=== PATIENT | male | born 1995 | race Two or more races ===

== ENCOUNTER 2017-04-10 14:17 | Emergency (ER) | payer BC ==
[~2017-04-10] VITALS: Ht 185.4 cm; Wt 68.0 kg
[2017-04-10 14:22] VITALS: BP 113/74
== END 2017-04-10 14:47 | disposition home or self-care (01) ==
LOC: ER 14:19
DX: L25.9 Unspecified contact dermatitis, unspecified cause (principal); F32.9 Major depressive disorder, single episode, unspecified
CPT/HCPCS: 99283; A4606; Z7610

== ENCOUNTER 2017-05-24 18:36 | Emergency (ER) | payer BC ==
[~2017-05-24] VITALS: Ht 185.4 cm; Wt 68.0 kg
[2017-05-24 18:40] VITALS: BP 128/79
--- NOTE | 2017-05-24 19:40 | NUR ---
PT C/O BODY RASH/REDNESS ON HANDS AND ARMPITS BILATERALLY. NO SOB OR PAIN NOTED. A/O X4 ABLE TO MAKE NEEDS MET. WILL BE SEEN BY
--- NOTE | 2017-05-24 19:42 | NUR ---
SEEN BY . TO BE D/C
== END 2017-05-24 20:00 | disposition home or self-care (01) ==
LOC: ER 18:38
DX: L30.9 Dermatitis, unspecified (principal); B35.1 Tinea unguium; L30.4 Erythema intertrigo; F32.9 Major depressive disorder, single episode, unspecified; F12.10 Cannabis abuse, uncomplicated
CPT/HCPCS: 99282; A4606; Z7610

== ENCOUNTER 2017-12-23 00:21 | Emergency (ER) | payer MEDICAID ==
[~2017-12-23] VITALS: Ht 185.4 cm; Wt 68.0 kg
[2017-12-23 00:23] VITALS: BP 103/65
[2017-12-23] MEDS ORDERED: TETRACAINE HCL/PF 0.5% UD 2 ML BOTTLE ONE (00:27)
[2017-12-23] MEDS ORDERED: FLUORESCEIN SODIUM OPHTH 1 EA STRIP ONE (00:27)
[2017-12-23] MEDS ORDERED: AZITHROMYCIN 250 MG TABLET ONE (00:51)
[2017-12-23] MEDS ORDERED: CEFTRIAXONE 500 MG VIAL ONE (00:51)
[2017-12-23] MEDS ORDERED: LIDOCAINE 0.5% HCL 50 ML VIAL ONE (00:51)
[2017-12-23] MEDS ORDERED: CEFTRIAXONE 500 MG VIAL IM ONE (01:00)
[2017-12-23] MEDS ORDERED: AZITHROMYCIN 250 MG TABLET PO ONE (01:00)
== END 2017-12-23 01:20 | disposition home or self-care (01) ==
LOC: ER 00:21
DX: B30.8 Other viral conjunctivitis (principal); N34.2 Other urethritis; A63.8 Other specified predominantly sexually transmitted diseases; F32.9 Major depressive disorder, single episode, unspecified
CPT/HCPCS: A4606; J0696; J3490; Z7610

== ENCOUNTER 2018-02-03 14:48 | Emergency (ER) | payer MEDICAID ==
[~2018-02-03] VITALS: Ht 185.4 cm; Wt 69.9 kg
[2018-02-03 14:48] VITALS: BP 128/70
[2018-02-03] MEDS ORDERED: IBUPROFEN 600 MG TABLET PO ONE (15:17)
[2018-02-03] MEDS: IBUPROFEN 600 MG TABLET PO ONE (15:27)
== END 2018-02-03 16:45 | disposition home or self-care (01) ==
LOC: ER 14:53
DX: K12.2 Cellulitis and abscess of mouth (principal); A74.9 Chlamydial infection, unspecified; F31.9 Bipolar disorder, unspecified; F17.210 Nicotine dependence, cigarettes, uncomplicated
CPT/HCPCS: 86403-TC; 87070-TC; A4606; Z7610

== ENCOUNTER 2020-07-11 18:52 | Emergency (ER) | payer MEDICAID, OTHER ==
[~2020-07-11] VITALS: Ht 185.4 cm; Wt 79.4 kg
[2020-07-11 19:21] VITALS: BP 148/77
[2020-07-11] MEDS ORDERED: TDAP [DIPH/PERTUSSIS/TET] 0.5 ML VIAL IM ONE ×2 (19:46→20:00)
[2020-07-11] MEDS ORDERED: CEPH500C2 PO (19:51)
[2020-07-11] MEDS ORDERED: SULF1TAB48 PO (19:51)
--- NOTE | 2020-07-11 20:02 | NUR ---
Patient discharged to home in stable condition. Written and verbal after care instructions given. Patient verbalizes understanding of instruction.
== END 2020-07-11 20:02 | disposition home or self-care (01) ==
LOC: ER 18:53
DX: S60.511A Abrasion of right hand, initial encounter (principal); L08.9 Local infection of the skin and subcutaneous tissue, unspecified; F31.9 Bipolar disorder, unspecified; F12.90 Cannabis use, unspecified, uncomplicated; Z98.890 Other specified postprocedural states; Z79.899 Other long term (current) drug therapy; W22.8XXA Striking against or struck by other objects, initial encounter; Y93.89 Activity, other specified; Y92.89 Other specified places as the place of occurrence of the external cause; Y99.8 Other external cause status
CPT/HCPCS: 90715

== ENCOUNTER 2020-09-01 14:11 | Emergency (ER) | payer MEDICAID, OTHER ==
[~2020-09-01] VITALS: Ht 185.4 cm; Wt 83.5 kg
[~2020-09-01 14:11] MED LIST: CEPH500C2 PO; SULF1TAB48 PO
[2020-09-01 14:21] VITALS: BP 122/80
[2020-09-01] MEDS ORDERED: CIPR5DRO EACHEYE (14:37)
--- NOTE | 2020-09-01 14:37 | NUR ---
THE PATIENT BIBS FOR C/O L EYE ITCHING AND IRRITATION SINCE THIS MORNING. THE PATIENT IS ALERT AND ORIENTED X4. DENIES PAIN. PATIENT DENIES CHANGE IN HIS VISION. IN ROOM AIR AND DENIE SOB. RESPIRATION REGULAR AND UNLABORED. PATIENT IS IN ER BED #1. WILL CONTINUE TO MONITOR.
--- NOTE | 2020-09-01 14:43 | NUR ---
Patient discharged to home in stable condition. Written and verbal after care instructions given. Patient verbalizes understanding of instruction. The patient left ER in stable condition.
== END 2020-09-01 14:46 | disposition home or self-care (01) ==
LOC: ER 14:14
DX: H10.89 Other conjunctivitis (principal); F31.9 Bipolar disorder, unspecified; F17.200 Nicotine dependence, unspecified, uncomplicated; Z79.899 Other long term (current) drug therapy

== ENCOUNTER 2021-01-30 19:15 | Emergency (ER) | payer OTHER ==
[~2021-01-30] VITALS: Ht 185.4 cm; Wt 81.6 kg
[~2021-01-30 19:15] MED LIST changes: +CIPR5DRO EACHEYE
--- NOTE | 2021-01-30 21:39 | NUR ---
Patient discharged to home in stable condition. Written and verbal after care instructions given. Patient verbalizes understanding of instruction.
[2021-01-30 21:43] VITALS: BP 132/70
== END 2021-01-30 21:44 | disposition home or self-care (01) ==
LOC: ER 19:19
DX: S93.492A Sprain of other ligament of left ankle, initial encounter (principal); F12.90 Cannabis use, unspecified, uncomplicated; F31.9 Bipolar disorder, unspecified; Z98.890 Other specified postprocedural states; X50.1XXA Overexertion from prolonged static or awkward postures, initial encounter; Y93.89 Activity, other specified; Y92.89 Other specified places as the place of occurrence of the external cause; Y99.8 Other external cause status
CPT/HCPCS: 73610-TC

== ENCOUNTER 2021-02-24 10:09 | Emergency (ER) | payer OTHER ==
[~2021-02-24] VITALS: Ht 185.4 cm; Wt 80.7 kg
--- NOTE | 2021-02-24 10:17 | NUR ---
THE PATIENT BIBS FOR PENILE DISCHARGE POSS STD PER PT. DENIES PAIN. DENIES FEVER OR CHILLS. WILL CONTINUE TO MONITOR THE PATIENT.
--- NOTE | 2021-02-24 10:22 | NUR ---
DR KEMP AT THE BEDSIDE
[2021-02-24] MEDS ORDERED: CEFTRIAXONE 500 MG VIAL IM ONE (10:30)
[2021-02-24] MEDS ORDERED: CEFTRIAXONE 500 MG VIAL ONE (10:36)
[2021-02-24] MEDS ORDERED: LIDOCAINE 2% 20 ML MDV ONE (10:36)
[2021-02-24] MEDS ORDERED: DOXY100C2 PO (10:45)
--- NOTE | 2021-02-24 10:48 | NUR ---
Patient discharged to home in stable condition. Written and verbal after care instructions given. Patient verbalizes understanding of instruction.
[2021-02-24 10:51] VITALS: BP 124/68
== END 2021-02-24 10:51 | disposition home or self-care (01) ==
LOC: ER 10:17
DX: K62.89 Other specified diseases of anus and rectum (principal); F31.9 Bipolar disorder, unspecified; F17.200 Nicotine dependence, unspecified, uncomplicated; Z79.899 Other long term (current) drug therapy
CPT/HCPCS: 87491; 87591; 96372; 99283; J0696; J3490

== ENCOUNTER 2021-12-08 18:45 | Emergency (ER) | payer OTHER ==
[~2021-12-08] VITALS: Ht 188 cm; Wt 79.4 kg
[~2021-12-08 18:45] MED LIST changes: +DOXY100C2 PO
[2021-12-08 20:03] VITALS: BP 116/92
[2021-12-08] MEDS ORDERED: TRIA15CR3 TP (20:25)
[2021-12-08] MEDS ORDERED: CEPH500C2 PO (20:25)
--- NOTE | 2021-12-08 20:34 | NUR ---
Patient discharged to home in stable condition. Written and verbal after care instructions given. Patient verbalizes understanding of instruction.
== END 2021-12-08 20:35 | disposition home or self-care (01) ==
LOC: ER 20:00
DX: T81.49XA Infection following a procedure, other surgical site, initial encounter (principal); F31.9 Bipolar disorder, unspecified; Z98.890 Other specified postprocedural states; Z79.899 Other long term (current) drug therapy